=== PATIENT | female | born 1980 | race Caucasian/White ===

== ENCOUNTER 2016-08-30 09:43 | Emergency (ER) | payer OTHER, MEDICARE, MEDICAID ==
[2016-08-30 10:43] VITALS: BP 112/81
--- NOTE | 2016-08-30 11:01 | UC ---
Throat Pain/Nasal Haile HPI - HPI Summary HPI Summary: SINUS PAIN AND PRESSURE X 10 DAYS + NASAL CONGESTION, PND, COUGH, NO FEVER, NO CHILLS - History of Current Complaint Chief Complaint: UCGeneralIllness Stated Complaint: COUGH,SINUSES,THROAT Time Seen by Provider: 08/30/16 10:40 Hx Obtained From: Patient Hx Last Menstrual Period: 08/15/16 Onset/Duration: Sudden Onset, Lasting Days - 10, Still Present Severity: Moderate Cough: Nonproductive Associated Signs & Symptoms: Positive: Sinus Discomfort, Nasal Discharge. Negative: Fever, Rash - Allergies/Home Medications Allergies/Adverse Reactions: Allergies Allergy/AdvReac Type Severity Reaction Status Date / Time Sulfa Antibiotics Allergy Hives Verified 08/30/16 10:43 PMH/Surg Hx/FS Hx/Imm Hx Previously Healthy: Yes Endocrine History Of: Denies: Diabetes Cardiovascular History Of: Denies: Cardiac Disorders Respiratory History Of: Denies: Asthma - Surgical History Surgical History: Yes Surgery Procedure, Year, and Place: Left shoulder surgery. - Family History Known Family History: Positive: None Negative: Hypertension, Diabetes - Social History Alcohol Use: Rare Substance Use Type: Marijuana Substance Use Comment - Amount & Last Used: daily Smoking Status (MU): Light Every Day Tobacco Smoker Type: eCigarettes - Immunization History Most Recent Influenza Vaccination: none Review of Systems Constitutional: Negative Skin: Negative Eyes: Negative ENT: Sore Throat, Nasal Discharge Respiratory: Cough Cardiovascular: Negative Gastrointestinal: Negative Genitourinary: Negative All Other Systems Reviewed And Are Negative: Yes Physical Exam Triage Information Reviewed: Yes Appearance: Well-Appearing, No Pain Distress, Well-Nourished Vital Signs: Initial Vital Signs Temp 98.7 F 08/30/16 10:39 Pulse 84 08/30/16 10:39 Resp 17 08/30/16 10:39 BP 112/81 08/30/16 10:39 Pulse Ox 98 08/30/16 10:39 Vital Signs Reviewed: Yes Eyes: Positive: Conjunctiva Clear ENT: Positive: Normal ENT inspection, Pharyngeal erythema, Nasal congestion, Nasal drainage. Negative: TMs normal Neck exam: Normal Neck: Positive: Supple, Nontender, No Lymphadenopathy Respiratory: Positive: Chest non-tender, Lungs clear, Normal breath sounds Cardiovascular: Positive: RRR, No Murmur, Pulses Normal Skin Exam: Normal Throat Pain/Nasal Course/Dx - Differential Dx/Diagnosis Provider Diagnoses: SINUSITIS Discharge - Discharge Plan Condition: Stable Disposition: HOME Prescriptions: Amoxicillin/Clavulanate TAB* [Augmentin TAB 875*] 875 mg PO BID #20 tab Patient Education Materials: Sinusitis (ED) Referrals: Cecilia Walker MD [Primary Care Provider] - 7 Days
== END 2016-08-30 11:15 | disposition home or self-care (01) ==
LOC: UCCORT 09:43
DX: J32.9 Chronic sinusitis, unspecified (principal); F17.210 Nicotine dependence, cigarettes, uncomplicated; F12.90 Cannabis use, unspecified, uncomplicated; Z88.2 Allergy status to sulfonamides
CPT/HCPCS: 99212; G0463

== ENCOUNTER 2017-11-29 10:05 | Emergency (ER) | payer OTHER, MEDICARE, MEDICAID ==
[2017-11-29 11:05] VITALS: BP 117/63
--- NOTE | 2017-11-29 11:32 | UC ---
Skin Complaint HPI - HPI Summary HPI Summary: Pt c/o sudden onset of erythematous polka dot rash to right forearm and upper back. Pt states that she was wearing a knit sweater yesterday and carried car seat with baby in it and leaned against edge of chair for a "few minutes' an dthen noticed immediate onse of rash that mimics pattern of seater. Pt states rash is less red today but still present. Denies, pain, itching or worsening of rash. - History of Current Complaint Time Seen by Provider: 11/29/17 11:03 Stated Complaint: SKIN COMPLAINT Hx Obtained From: Patient Hx Last Menstrual Period: 11/12/17 ?: No Onset/Duration: Sudden Onset, Still Present Skin Exposure Onset/Duration: Hours Ago Timing: Constant Onset Severity: Mild Current Severity: Mild Pain Intensity: 0 Location: Discrete Character: Redness Aggravating Factor(s): Nothing Alleviating Factor(s): Unknown Associated Signs & Symptoms: Positive: Rash - Allergy/Home Medications Allergies/Adverse Reactions: Allergies Allergy/AdvReac Type Severity Reaction Status Date / Time Sulfa (Sulfonamide Allergy Hives Verified 11/29/17 11:01 Antibiotics) Home Medications: Home Medications amLODIPine TAB* [Norvasc 5 mg TAB*] 5 mg PO DAILY 11/29/17 [History Confirmed ] Review of Systems Constitutional: Negative Skin: Rash Eyes: Negative ENT: Negative Respiratory: Negative Cardiovascular: Negative Gastrointestinal: Negative Genitourinary: Negative Motor: Negative Neurovascular: Negative Musculoskeletal: Negative Neurological: Negative Psychological: Negative Is Patient Immunocompromised?: No All Other Systems Reviewed And Are Negative: Yes PMH/Surg Hx/FS Hx/Imm Hx Previously Healthy: Yes Cardiovascular History: Hypertension - Surgical History Surgical History: Yes Surgery Procedure, Year, and Place: Left shoulder surgery - Family History Known Family History: Positive: None Negative: Hypertension, Diabetes - Social History Occupation: Employed Full-time Lives: With Family Alcohol Use: Rare Substance Use Type: Marijuana Substance Use Comment - Amount & Last Used: 2-3 times weekly Smoking Status (MU): Light Every Day Tobacco Smoker Type: Cigarettes Amount Used/How Often: 3 cigarettes per day Have You Smoked in the Last Year: Yes - Immunization History Most Recent Influenza Vaccination: none Physical Exam Triage Information Reviewed: Yes Appearance: Well-Appearing Vital Signs: Initial Vital Signs Temp 99.1 F 11/29/17 10:51 Pulse 73 11/29/17 10:51 Resp 18 11/29/17 10:51 BP 117/63 11/29/17 10:51 Pulse Ox 99 11/29/17 10:51 Vital Signs Reviewed: Yes Eye Exam: Normal ENT: Positive: Hearing grossly normal Neck exam: Normal Neck: Positive: Supple, Nontender, No Lymphadenopathy Respiratory Exam: Normal Respiratory: Positive: Normal breath sounds Cardiovascular Exam: Normal Musculoskeletal Exam: Normal Neurological Exam: Normal Psychological Exam: Normal Skin: Positive: rashes - 4cm X 2cm erythematous, flat circular rash that appears to be an imprinted pattern on left anterior forearm adn midupper back. RAsh is blanchable Course/Dx - Differential Diagnoses - Skin Complaint Differential Diagnoses: Contact Dermatitis, Other - vasculitis - Diagnoses Provider Diagnoses: acute rash left forearm and mid upper back Discharge - Sign-Out/Discharge Documenting (check all that apply): Discharge/Admit/Transfer - Discharge Plan Condition: Stable Disposition: HOME Patient Education Materials: Acute Rash (ED) Referrals: Cecilia Walker MD [Primary Care Provider] - If Needed Additional Instructions: Please follow up with your PCP or OB provider as discussed. - Billing Disposition and Condition Condition: STABLE Disposition: HOME
== END 2017-11-29 11:37 | disposition home or self-care (01) ==
LOC: UCCORT 10:05
DX: R21 Rash and other nonspecific skin eruption (principal); Z88.2 Allergy status to sulfonamides; I10 Essential (primary) hypertension; F17.210 Nicotine dependence, cigarettes, uncomplicated
CPT/HCPCS: 99211; G0463